=== PATIENT | female | born 1940 | race Caucasian/White ===

== ENCOUNTER 2016-11-17 18:07 | Emergency (ER) | payer MEDICARE ==
[~2016-11-17] VITALS: Ht 162.6 cm; Wt 89.0 kg
[2016-11-17] MEDS ORDERED: ACETAMINOPHEN 325 MG TABLET ONE (18:24)
[2016-11-17] MEDS ORDERED: ACETAMINOPHEN 325 MG TABLET PO ONE (18:30)
[2016-11-17 19:41] VITALS: BP 146/67
== END 2016-11-17 20:22 | disposition home or self-care (01) ==
LOC: ED 19:45
DX: S06.0X0A Concussion without loss of consciousness, initial encounter (principal); S00.81XA Abrasion of other part of head, initial encounter; S40.212A Abrasion of left shoulder, initial encounter; S40.812A Abrasion of left upper arm, initial encounter; S70.312A Abrasion, left thigh, initial encounter; E78.00 Pure hypercholesterolemia, unspecified; I10 Essential (primary) hypertension; W10.9XXA Fall (on) (from) unspecified stairs and steps, initial encounter; Y93.89 Activity, other specified; Y99.8 Other external cause status; Y92.59 Other trade areas as the place of occurrence of the external cause
CPT/HCPCS: 70450; 99284